=== PATIENT | female | born 1955 ===

== ENCOUNTER 2025-10-04 12:38 | Outpatient (CLI) | payer MEDICARE | END 2025-10-04 12:39 | disposition home or self-care (01) | LOC: BICMAMMO 12:38 | PROVIDERS: ATTEND Family Medicine | DX: Z12.31 Encounter for screening mammogram for malignant neoplasm of breast (principal); Z80.3 Family history of malignant neoplasm of breast; Z85.820 Personal history of malignant melanoma of skin; Z98.82 Breast implant status | CPT/HCPCS: 77063; 77067 ==